=== PATIENT | female | born 1940 | race Caucasian/White ===

== ENCOUNTER → 2017-05-30 | Outpatient (CLI) | payer MEDICARE ==
[~2017-05-30] MED LIST: ASPI-496 PO; HYDR25TA6 PO; LEVO88TA4 PO; LISI-167 PO; METO-99 PO; POTA10TA5 PO
== END | disposition home or self-care (01) ==
LOC: CVU 07:05
PROVIDERS: ATTEND Internal Medicine Cardiovascular Disease
DX: I87.2 Venous insufficiency (chronic) (peripheral) (principal); M17.0 Bilateral primary osteoarthritis of knee; M16.0 Bilateral primary osteoarthritis of hip; R60.0 Localized edema; M79.605 Pain in left leg; M79.672 Pain in left foot; M79.671 Pain in right foot; M79.604 Pain in right leg; I10 Essential (primary) hypertension; I48.91 Unspecified atrial fibrillation; I38 Endocarditis, valve unspecified
CPT/HCPCS: 93922; 93970

== ENCOUNTER → 2018-05-13 | Outpatient (CLI) | payer MEDICARE ==
[~2018-05-13] MED LIST changes: +REGADENOSON 0.4 MG/5 ML SYRINGE ONE
== END | disposition home or self-care (01) ==
LOC: CFH 10:27
PROVIDERS: ATTEND Internal Medicine Cardiovascular Disease
DX: I21.19 ST elevation (STEMI) myocardial infarction involving other coronary artery of inferior wall (principal); I25.9 Chronic ischemic heart disease, unspecified; I35.8 Other nonrheumatic aortic valve disorders; I34.0 Nonrheumatic mitral (valve) insufficiency; I10 Essential (primary) hypertension; R00.1 Bradycardia, unspecified
CPT/HCPCS: 78452; 93017; 93306; A9502; J2785

== ENCOUNTER 2018-10-27 00:19 | Observation (INO) | payer MEDICARE ==
[~2018-10-27] VITALS: Ht 170.2 cm; Wt 77.4 kg
[~2018-10-27 00:19] MED LIST changes: -REGADENOSON 0.4 MG/5 ML SYRINGE ONE
[2018-10-27 00:58] LABS: BASOPHILS # (AUTO) 0.03 x10^3/uL (0-0.1); BASOPHILS % (AUTO) 1 % (0-1); EOSINOPHILS # (AUTO) 0.12 x10^3/uL (0-0.4); EOSINOPHILS % (AUTO) 2 % (1-7); LYMPHOCYTES # (AUTO) 2.91 x10^3/uL (1-3.4); LYMPHOCYTES % (AUTO) 44 % (22-44); MD NO; MEAN CORPUSCULAR HEMOGLOBIN 33.3 pg (27.0-34.8); MEAN CORPUSCULAR HGB CONC 34.6 g/dL (32.4-35.8); MEAN CORPUSCULAR VOLUME 96.3 fL (80-100); MEAN PLATELET VOLUME 8.3 fL (7.4-10.4); MONOCYTES # (AUTO) 0.74 x10^3/uL (0.2-0.8); MONOCYTES % (AUTO) 11 % (2-9); NEUTROPHILS # (AUTO) 2.84 x10^3/uL (1.8-6.8); NEUTROPHILS % (AUTO) 43 % (42-75); PLATELET COUNT 270 x10^3/uL (130-400); RED BLOOD COUNT 4.24 x10^6/uL (3.82-5.3); RED CELL DISTRIBUTION WIDTH 13.4 % (9.6-15.2)
[2018-10-27 01:09] LABS: ALBUMIN 3.8 g/dL (3.4-5.0); ANION GAP 9 mmol/L (5-15); CALCIUM 8.8 mg/dL (8.5-10.1); CHLORIDE 113 mmol/L (98-107)
[2018-10-27 01:13] LABS: TROPONIN I < 0.015 ng/mL (0.000-0.045)
[2018-10-27] MEDS ORDERED: BISACODYL 10 MG SUPP PR PRN (02:00)
[2018-10-27] MEDS ORDERED: morphine SULFATE 10 MG/ML, 1ML IVPush PRN (02:00)
[2018-10-27] MEDS ORDERED: ACETAMINOPHEN 325 MG TABLET PO PRN (02:00)
[2018-10-27] MEDS ORDERED: LABETALOL 5MG/ML, 20ML IVPush PRN (02:00)
[2018-10-27] MEDS ORDERED: ONDANSETRON ODT 4 MG PO PRN (02:00)
[2018-10-27] MEDS ORDERED: POLYETHYLENE GLYCOL 17 GM PACKET PO PRN (02:00)
[2018-10-27] MEDS ORDERED: ENOXAPARIN 40 MG/0.4 ML SQ SCH (02:00)
[2018-10-27] MEDS ORDERED: OXYcodone IR 5MG TABLET PO PRN (02:00)
[2018-10-27] MEDS ORDERED: DOCUSATE 100 MG CAPSULE PO PRN (02:00)
[2018-10-27] MEDS ORDERED: PROMETHAZINE 25 MG/ML, 1ML IM PRN (02:00)
[2018-10-27] MEDS ORDERED: ONDANSETRON 2MG/ML, 2ML IVPush PRN (02:00)
[2018-10-27] MEDS ORDERED: hydrALAzine 20 MG/ML, 1ML IVPush PRN (02:00)
[2018-10-27] MEDS ORDERED: NITROGLYCERIN 0.4 MG BOTTLE (25 TABS) SL PRN (02:00)
[2018-10-27] MEDS: HEPARIN 5,000 UNITS/ML, 1ML SQ SCH ×2 (02:35→11:57)
[2018-10-27 02:40] LABS: HEMOGLOBIN A1C 5.9 % (4.2-6.3)
[2018-10-27 02:43] LABS: FREE T4 (FREE THYROXINE) 1.09 ng/dL (0.76-1.46); THYROID STIMULATING HORMONE 5.37 mIU/L (0.358-3.740)
[2018-10-27] MEDS ORDERED: EVOL140S INJ (02:47)
[2018-10-27 02:48] VITALS: BP 134/89
[2018-10-27 04:45] LABS: TROPONIN I 0.022 ng/mL (0.000-0.045)
[2018-10-27] MEDS ORDERED: ASPIRIN 325 MG TABLET EC PO SCH (06:00)
[2018-10-27 07:35] VITALS: BP 134/84
[2018-10-27] MEDS ORDERED: METOPROLOL TARTRATE 100 MG TABLET PO SCH (09:00)
[2018-10-27] MEDS ORDERED: POTASSIUM CHLORIDE 10 MEQ TABLET.ER PO SCH (09:00)
[2018-10-27] MEDS ORDERED: LISINOPRIL 10 MG TABLET PO SCH (09:00)
[2018-10-27] MEDS ORDERED: HYDROCHLOROTHIAZIDE 25 MG TABLET PO SCH (09:00)
[2018-10-27] MEDS ORDERED: LEVOTHYROXINE 88 MCG TABLET PO SCH (09:00)
[2018-10-27 11:46] LABS: TROPONIN I < 0.015 ng/mL (0.000-0.045)
[2018-10-27 13:00] VITALS: BP 125/66
[2018-10-27] MEDS ORDERED: RIVA1TAB PO (14:00)
[2018-10-28] MEDS ORDERED: ISOS30TA8 PO (00:16)
[2018-10-28] MEDS ORDERED: ISOSORBIDE MONONITRATE ER 30 MG TABLET PO SCH (09:00)
[2018-10-28] MEDS ORDERED: RIVAROXABAN 20 MG TABLET PO SCH (16:30)
== END 2018-10-27 15:05 | disposition home or self-care (01) ==
LOC: ED 00:45 → INTOOBSV 01:41 → 5SO 01:41 → DCLOUNGE 14:49
PROVIDERS: ADMIT Internal Medicine; ATTEND Internal Medicine
DX: R07.89 Other chest pain (principal); R00.2 Palpitations; I10 Essential (primary) hypertension; E03.9 Hypothyroidism, unspecified; M79.89 Other specified soft tissue disorders; M19.90 Unspecified osteoarthritis, unspecified site; M48.00 Spinal stenosis, site unspecified; I48.0 Paroxysmal atrial fibrillation; Z79.82 Long term (current) use of aspirin; Z79.899 Other long term (current) drug therapy
CPT/HCPCS: 36415; 71045; 80048; 82040; 83036; 83735; 83880; 84439; 84443; 84484; 85025; 93005; 96372; 99284; G0378; J1644

== ENCOUNTER 2019-08-07 09:51 | Emergency (ER) | payer MEDICARE ==
[~2019-08-07] VITALS: Ht 170.2 cm; Wt 90.2 kg
[~2019-08-07 09:51] MED LIST changes: +EVOL140S INJ; +ISOS30TA8 PO; +RIVA1TAB PO
[2019-08-07 09:53] VITALS: BP 126/49
[2019-08-07 11:08] LABS: RAPID INFLUENZA A Negative (Negative); RAPID INFLUENZA B Negative (Negative)
== END 2019-08-07 11:37 | disposition home or self-care (01) ==
LOC: ED 11:09
DX: J02.0 Streptococcal pharyngitis (principal); I48.91 Unspecified atrial fibrillation; M19.90 Unspecified osteoarthritis, unspecified site
CPT/HCPCS: 29125; 71046; 87400; 87880; 99284

== ENCOUNTER → 2019-11-01 | Outpatient (CLI) | payer MEDICARE | END | disposition home or self-care (01) | LOC: RAD 15:38 | PROVIDERS: ATTEND Physician Assistant Medical | DX: K59.00 Constipation, unspecified (principal); M16.11 Unilateral primary osteoarthritis, right hip | CPT/HCPCS: 74021 ==

== ENCOUNTER → 2020-02-04 | Outpatient (CLI) | payer MEDICARE, OTHER ==
[~2020-02-04] MED LIST changes: -EVOL140S INJ; +EVOL140S2 INJ
== END | disposition home or self-care (01) ==
LOC: CVU 07:41
PROVIDERS: ATTEND Internal Medicine Cardiovascular Disease
DX: I08.0 Rheumatic disorders of both mitral and aortic valves (principal); I10 Essential (primary) hypertension
CPT/HCPCS: 93306

== ENCOUNTER → 2020-02-23 | Outpatient (CLI) | payer MEDICARE, OTHER ==
[~2020-02-23] MED LIST changes: +REGADENOSON 0.4 MG/5 ML SYRINGE ONE
== END | disposition home or self-care (01) ==
LOC: CFH 12:39
PROVIDERS: ATTEND Internal Medicine Cardiovascular Disease
DX: I10 Essential (primary) hypertension (principal); R07.9 Chest pain, unspecified
CPT/HCPCS: 78452; 93017; A9502; J2785